=== PATIENT | male | born 1990 | race Caucasian/White ===

== ENCOUNTER 2018-02-24 15:33 | Emergency (ER) | payer SELFPAY ==
[~2018-02-24] VITALS: Ht 172.7 cm; Wt 86.4 kg
[2018-02-24 15:46] VITALS: BP 132/76; Ht 172.7 cm; Wt 86.4 kg
[2018-02-24] MEDS ORDERED: BACTRIM DS1 TAB PO (16:20)
== END 2018-02-24 16:38 | disposition home or self-care (01) ==
LOC: D.ER 15:33
DX: L02.414 Cutaneous abscess of left upper limb (principal); F17.200 Nicotine dependence, unspecified, uncomplicated; F15.90 Other stimulant use, unspecified, uncomplicated

== ENCOUNTER 2019-08-11 19:48 | Emergency (ER) | payer SELFPAY ==
[~2019-08-11] VITALS: Ht 172.7 cm; Wt 72.7 kg
[~2019-08-11 19:48] MED LIST: BACTRIM DS1 TAB PO
[2019-08-11 19:55] VITALS: Ht 172.7 cm; Wt 72.7 kg
[2019-08-11 20:24] LABS: BASOPHILS 0.6 % (0-2); EOSINOPHILS 1.4 % (0-7); HEMATOCRIT 46.2 % (42.0-54.0); HEMOGLOBIN 15.5 g/dL (13.5-17.5); IMMATURE GRANULOCYTES 0.5 % (0-5); LYMPHOCYTES 22.7 % (15-50); MCH 31.1 pg (26.0-34.0); MCHC 33.5 g/dL (31.0-37.0); MCV 92.8 fL (80.0-100.0); MEAN PLATELET VOLUME 9.7 fL (7.4-10.4); MONOCYTES 5.9 % (2-11); NEUTROPHILS 68.9 % (40-80); PLATELET COUNT 292 10x3/uL (130-400); RBC 4.98 10x6/uL (4.20-6.10); RDW 12.7 % (11.5-14.5); WBC 16.5 10x3/uL (4.8-10.8)
[2019-08-11 20:32] LABS: CALC OSMOLALITY 271 mosm/kg (275-300); CALCIUM 9.3 mg/dL (8.5-10.1); CARBON DIOXIDE 24.5 mmol/L (21.0-32.0); CHLORIDE - SERUM 100 mmol/L (98-107); CREATININE - SERUM 1.1 mg/dL (0.6-1.3); GLUCOSE 123 mg/dL (74-106); POTASSIUM - SERUM 3.9 mmol/L (3.5-5.1); SODIUM 135 mmol/L (136-145); UREA NITROGEN 15 mg/dL (7-18); eGFR NON AFRICAN AMERICAN 83 mL/min (90-120)
[2019-08-11] MEDS ORDERED: STERAPRED 5MG 65 M1 PO (20:36)
[2019-08-11] MEDS ORDERED: AUGMENTIN 875-11 TAB PO (20:36)
[2019-08-11] MEDS ORDERED: [UNRECOGNIZED DRUG - CODE] PO (20:39)
[2019-08-11 20:51] VITALS: BP 130/80
== END 2019-08-11 20:50 | disposition home or self-care (01) ==
LOC: D.ER 19:48
PROVIDERS: Family Medicine
DX: J02.0 Streptococcal pharyngitis (principal); R59.0 Localized enlarged lymph nodes; Z72.0 Tobacco use